=== PATIENT | male | born 1995 | race American Indian/Alaskan Native ===

== ENCOUNTER 2016-07-29 17:47 | Emergency (ER) | payer OTHER ==
[2016-07-29] MEDS ORDERED: TYLENOL #3 PO ONE (22:15)
[2016-07-29] MEDS ORDERED: BOOSTRIX IM ONE (22:15)
--- NOTE | 2016-07-29 22:32 | Emergency Department Report ---
HPI - General Chief Complaint: Extremity Injury, Lower Time Seen by Provider: 07/29/16 22:14 - HPI HPI: he is a 20-year-old male who presents to ED complaining of right bottom of the foot pain 1 day. Patient states he was cutting the grass around 4 AM today when he stepped on a nail. Patient states he the nail was attached to a plywood board. Patient states minimal bleeding. Patient states he does not remember his last tetanus shot. Patient denies fever/chills/nausea/vomiting/abdominal pain/diarrhea/chest pain/ shortness of breath or any other problems. ED Past Medical Hx - Past Medical History Previous Medical History?: No - Surgical History Past Surgical History?: Yes Additional Surgical History: Facial surgery - Social History Smoking Status: Current Every Day Smoker Substance Use Type: Alcohol, Marijuana - Medications Home Medications: Home Medications Medication Instructions Recorded Confirmed Last Taken Type Sulfamethoxazole/Trimethoprim 1 each PO BID #6 tablet 03/31/16 Unknown Rx [Bactrim DS TAB] Ibuprofen [Motrin] 800 mg PO Q8HR PRN #30 tablet 07/29/16 Unknown Rx ED Review of Systems ROS: Stated complaint: RT FOOT /STEP ON NAIL Other details as noted in HPI Constitutional: denies: chills, fever Eyes: denies: eye pain, eye discharge, vision change ENT: denies: ear pain, throat pain Respiratory: denies: cough, shortness of breath, wheezing Cardiovascular: denies: chest pain, palpitations Endocrine: no symptoms reported Gastrointestinal: denies: abdominal pain, nausea, diarrhea Genitourinary: denies: urgency, dysuria, frequency, hematuria, testicular pain, testicular mass Musculoskeletal: denies: back pain, joint swelling, arthralgia, myalgia Skin: denies: rash, lesions Neurological: denies: headache, weakness, numbness, paresthesias, confusion, abnormal gait Psychiatric: denies: anxiety, depression, suicidal thoughts Hematological/Lymphatic: denies: easy bleeding, easy bruising, swollen glands Physical Exam - Physical Exam Vital Signs: Vital Signs 07/29/16 17:52 Temperature 98.1 F Pulse Rate 85 Respiratory 20 Rate Blood Pressure 115/73 O2 Sat by Pulse 99 Oximetry Physical Exam: GENERAL: Alert and oriented x3, no apparent distress, Normal Gait, atraumatic. HEAD: Head is normocephalic and a-traumatic. EYES: Extra ocular muscles are intact. Pupils are equal, round, and reactive to light and accommodation. EARS: symetrical, atraumatic. gross auditory nml bilaterally. NOSE: Nose symetrical, Nontender,Nares appeared normal. MOUTH:Mouth is well hydrated and without lesions. Patent airways. NECK: Supple. Non edematous, No carotid bruits. No lymphadenopathy or thyromegaly. LUNGS: Symetrical with respiration, No wheezing, no rales or crackles, CTAB. HEART: S1, S2 present, regular rate and rhythm without murmur, no rubs, no gallops. ABDOMEN: No organomegaly was noted,Positive bowel sounds, soft, and non- distended. . Nontender to palpation on all Quadrants, NO CVA tenderness. EXTREMITIES/MUSCULOSKELETAL: No cyanosis, clubbing, rash, lesions or edema. Full ROM bilaterally. LE Pulses 2+ bilaterally. LE and UE 5+ strength bilaterally. Full range of motion on right foot. No swelling, no bleeding. Mild tenderness to palpation surrounding areas of nail prick. Nail prick looks like a small nail induration, there was no break of the skin. NEUROLOGIC: No focal Deficit, Cranial nerves II through XII are grossly intact. No loss of sensation, PSYCHIATRIC: Mood is congruent with affect, denies suicidal or homicidal ideations. SKIN: Warm and dry, No lesions, No ulceration or induration present. ED Course Vital Signs 07/29/16 17:52 Temperature 98.1 F Pulse Rate 85 Respiratory 20 Rate Blood Pressure 115/73 O2 Sat by Pulse 99 Oximetry ED Medical Decision Making - Medical Decision Making 20-year-old male presents with a nail injury to foot ED course: Patient received 0.5 mg of boosterix and pain medication. Discussed the patient to follow up with primary care physician. Vital signs are stable patient is in no acute respiratory distress. Discussed with patient to apply warm compression to foot and take pain medication as prescribed. Patient family states that he understands and complaints of follow-up. Critical care attestation.: If time is entered above; I have spent that time in minutes in the direct care of this critically ill patient, excluding procedure time. ED Disposition Clinical Impression: Nail wound of right foot Qualifiers: Encounter type: initial encounter Qualified Code(s): S91.331A - Puncture wound without foreign body, right foot, initial encounter Abrasion foot/toe Qualifiers: Encounter type: initial encounter Laterality: right Qualified Code(s): S90.811A - Abrasion, right foot, initial encounter Disposition: DISCHARGED TO HOME OR SELFCARE Is pt being admited?: No Does the pt Need Aspirin: No Condition: Stable Instructions: Abrasion (ED), Puncture Wound (ED) Additional Instructions: Rest foot and keep away from other infection Follow-up with her primary care physician. Prescriptions: Ibuprofen [Motrin] 800 mg PO Q8HR PRN #30 tablet PRN Reason: Pain Referrals: PRIMARY CARE, [Primary Care Provider] - 3-5 Days ARNOLD CORTES MD [Referring] - 3-5 Days [facility] [Outside] - 3-5 Days [facility] [Outside] - 3-5 Days Forms: Work/School Release Form(ED), Accompanied Note Time of Disposition: 22:38
[2016-07-29 23:56] VITALS: BP 126/72
== END 2016-07-29 22:55 | disposition home or self-care (01) ==
LOC: ED 17:47
DX: S91.331A Puncture wound without foreign body, right foot, initial encounter (principal); S90.811A Abrasion, right foot, initial encounter; F17.200 Nicotine dependence, unspecified, uncomplicated; F12.10 Cannabis abuse, uncomplicated; X58.XXXA Exposure to other specified factors, initial encounter; Y93.9 Activity, unspecified; Y92.9 Unspecified place or not applicable; Y99.9 Unspecified external cause status
CPT/HCPCS: 90471; 90715; 99282